=== PATIENT | male | born 1950 | race Caucasian/White ===

== ENCOUNTER 2018-10-03 07:30 | Inpatient (IN) ==
[2018-09-27 13:11] LABS: Basophils # (Auto) 0 K/mcL (0.0-0.3); Basophils % (Auto) 0.5 % (0.0-2.0); Eosinophils # (Auto) 0.3 K/mcL (0.0-0.7); Eosinophils % (Auto) 5.3 % (0.0-7.0); Granulocytes % (Auto) 61.6 % (38.0-78.0); Lymphocytes # (Auto) 1.7 K/mcL (1.5-4.8); Lymphocytes % (Auto) 26.2 % (15.5-49.0); Mean Cell Volume 96.7 fL (80.0-100.0); Mean Corpuscular HGB Conc 32.9 g/dL (31.0-36.0); Monocytes # (Auto) 0.4 K/mcL (0.1-0.9); Monocytes % (Auto) 6.4 % (1.0-12.0); Platelet Count 192 K/mcL (140-440); RBC 4.56 M/mcL (4.50-5.90)
[2018-09-27 13:57] LABS: Blood Urea Nitrogen 12 mg/dl (8-23)
[2018-09-27 15:09] LABS: Appearance,Urine HAZY; Bilirubin,Urine NEG (NEG); Color,Urine YELLOW; Glucose,Urine (UA) NEGATIVE (NEG); Leukocyte Esterase,Urine NEG /uL (NEG); Protein,Urine NEG (NEG); Specific Gravity,Urine 1.013 (1.000-1.035); Urine Blood NEG mg/dL (<0.03); Urobilinogen,Urine NEG (NEG)
[~2018-10-03 07:30] MED LIST: ACETAMINOPHEN 500 MG TABLET PO SCH; CELECOXIB 200 MG CAPSULE PO SCH; PREGABALIN 75 MG CAPSULE PO SCH; ceFAZolin 2 GM in DEXTROSE 5% IN WATER 50 ML IV SCH; oxyCODONE 10 MG TAB.ER.12H PO SCH
[2018-10-03] MEDS ORDERED: GENTAMICIN SULFATE 800 MG/20 ML VIAL IR ONE (08:04)
[2018-10-03] MEDS ORDERED: fentaNYL 250 MCG/5 ML VIAL IV ONE (10:55)
[2018-10-03] MEDS ORDERED: LIDOCAINE HCL/PF 100 MG/5 ML SYRINGE IV ONE (10:55)
[2018-10-03] MEDS ORDERED: SUCCINYLCHOLINE 20 MG/ML ML IV ONE (10:55)
[2018-10-03] MEDS ORDERED: ROPIVACAINE HCL/PF 30 ML VIAL IJ ONE (10:55)
[2018-10-03] MEDS ORDERED: MIDAZOLAM 5 MG/5 ML VIAL IV ONE (10:55)
[2018-10-03] MEDS ORDERED: TRANEXAMIC ACID 1,000 MG/10 ML VIAL IV ONE (10:55)
[2018-10-03] MEDS ORDERED: PROPOFOL 200 MG/20 ML VIAL IV ONE (10:55)
[2018-10-03] MEDS ORDERED: HYDROmorphone 2 MG/ML VIAL IV ONE (10:55)
[2018-10-03] MEDS ORDERED: ONDANSETRON 4 MG/2 ML VIAL IV ONE (10:55)
[2018-10-03] MEDS ORDERED: GLYCOPYRROLATE 0.2 MG/ML VIAL IV ONE (10:55)
[2018-10-03] MEDS ORDERED: NALOXONE HCL 0.4 MG/ML VIAL IV PRN (12:17)
[2018-10-03] MEDS ORDERED: HYDROmorphone 2 MG/ML VIAL IV PRN (12:17)
[2018-10-03] MEDS ORDERED: MEPERIDINE 25 MG/ML SYRINGE IV PRN (12:17)
[2018-10-03] MEDS ORDERED: BENZOCAINE/MENTHOL 1 LOZENGE PO PRN ×2 (12:17→12:26)
[2018-10-03] MEDS ORDERED: PROMETHAZINE 25 MG/ML VIAL IV PRN (12:17)
[2018-10-03] MEDS ORDERED: LACTATED RINGERS 250 ML IV PRN (12:17)
[2018-10-03] MEDS ORDERED: diphenhydrAMINE 50 MG/ML VIAL IV PRN (12:17)
[2018-10-03] MEDS ORDERED: FLUMAZENIL 0.1 MG/ML ML IV PRN (12:17)
[2018-10-03] MEDS ORDERED: METHOCARBAMOL 1,000 MG/10 ML VIAL IV PRN (12:17)
[2018-10-03] MEDS ORDERED: ONDANSETRON 4 MG/2 ML VIAL IV PRN ×2 (12:17→12:26)
[2018-10-03] MEDS ORDERED: IPRATROPIUM/ALBUTEROL 3 ML AMPUL.NEB NEB PRN (12:17)
[2018-10-03] MEDS ORDERED: KETOROLAC 15 MG/ML VIAL IV PRN ×2 (12:17→12:26)
[2018-10-03] MEDS ORDERED: BUPIVACAINE W/EPI 0.5% 50 ML VIAL IJ ONE (12:25)
[2018-10-03] MEDS ORDERED: TRANEXAMIC ACID 1,000 MG/10 ML VIAL IV SCH (12:26)
[2018-10-03] MEDS ORDERED: POLYETHYLENE GLYCOL 3350 17 GM PACKET PO PRN (12:26)
[2018-10-03] MEDS ORDERED: MAGNESIUM HYDROXIDE 30 ML ORAL.SUSP PO PRN (12:26)
[2018-10-03] MEDS ORDERED: FLEETS ADULT ENEMA PR PRN (12:26)
[2018-10-03] MEDS ORDERED: ACETAMINOPHEN 325 MG TABLET PO PRN (12:26)
[2018-10-03] MEDS ORDERED: BISACODYL 10 MG SUPP.RECT PR PRN (12:26)
--- NOTE | 2018-10-03 12:26 | Brief Operative Note ---
Date of procedure: 10/03/18 Pre-op diagnosis: left shoulder rca and bicep tear Post-op diagnosis: same Procedure: left reverse tsa and bicep tenodesis Grafts/Implants: Yes Anesthesia: LIDIA Surgeon: Mahamed Krueger Autopsy Pathologist: Wojciech Kelley Estimated blood loss (cc): 100 Specimens Removed/Pathology: none sent Condition: stable Disposition: PACU
[2018-10-03] MEDS ORDERED: ZOLPIDEM 10 MG PO PRN (12:28)
[2018-10-03] MEDS ORDERED: NITROGLYCERIN 0.4 MG TAB.SUBL SL PRN (12:28)
[2018-10-03] MEDS ORDERED: LACTATED RINGERS 1,000 ML IV SCH (12:30)
--- NOTE | 2018-10-03 13:04 | Operative Note ---
DATE OF OPERATION: 10/03/2018 PREOPERATIVE DIAGNOSES: Left shoulder rotator cuff arthropathy with biceps tendinopathy. POSTOPERATIVE DIAGNOSES: Left shoulder rotator cuff arthropathy with biceps tendinopathy. PROCEDURE: Left reverse total shoulder and biceps tenodesis. SURGEON: Mahamed Krueger M.D. MANUFACTURED BUILDINGS SUPERVISOR: Wojciech Kelley PA-C. ANESTHESIA: General LMA anesthesia. COMPLICATIONS: None. ESTIMATED BLOOD LOSS: About 100 mL. IMPLANTS: Metaglene standard, a 32 mm central screw with two 36 and 24 locking screws. A 40 mm head with 6 mm of offset was used. On the humeral side, I did use a size 13 stem with a standard thickness poly. The biceps tenodesis was performed with a #2 Ethibond. DESCRIPTION OF PROCEDURE: The patient was brought to the operating room and put to sleep with general LMA anesthesia. Once asleep, the patient had the left shoulder sterilely prepped and draped in the usual sterile fashion. Timeout was performed. We confirmed the operative side by initials, consent form, and x-rays. Once done, we then placed Ioban over the skin and made a deltopectoral approach to the shoulder. We identified the anterior capsule which was released with the subscap. We identified the biceps tendon which was partially ruptured which was released from the glenoid side. A biceps tenodesis was performed to the pec major with two [id number] sutures and roughened the bony surface. We then made our humeral cut at 135-degree inclination and 20 degrees of retroversion using their guide. Once this was done, we then placed a protective plate on the humeral side and subluxed this posteriorly. This was somewhat difficult given the size and the retroversion of the glenoid. We tried to reestablish some of the anteversion, and it was somewhat difficult to do. We placed a pin centrally and then reamed up to size 40. We implanted the Metaglene with a 36 mm central screw and three peripheral screws, 24 36, and 36. The 40 mm glenosphere was placed with 6 mm of offset because of the medialization. Once done, we then tapped the humeral head into place and then prepared the humeral side. We broached up to size 13 stem. We then trialed the 13 stem with a standard thickness poly. This was a little tight. We did countersink the stem slightly. We made the neck cut about 2 mm lower, and this fit very nicely. This was not overly tight but very stable throughout the arc of motion. We irrigated thoroughly and implanted the final implant. There was some cement used distally to secure the stem initially, and the 13 stem was placed with a standard thickness poly for a 40 mm head. This was reduced without difficulty. We then controlled any bleeding, which there was not very much of. We irrigated, closed the deltopectoral approach with 2-0 Vicryl, closed the skin with 2-0 Vicryl and adhesive closure. A DonJoy sling was fitted and given to the patient. RBH:jose Job ID: [id number] Doc ID: [id number] Mahamed Krueger MD
[2018-10-03] MEDS: fentaNYL 100 MCG/2 ML VIAL IV PRN ×3 (13:22→13:26)
--- NOTE | 2018-10-03 13:30 | XRay Report ---
CLINICAL INFORMATION: Post-Op Total Shoulder COMPARISON: Preoperative films 08/28/2008. FINDINGS: Total shoulder prostheses is anatomically aligned. 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 Soft tissue swelling gas seen as expected IMPRESSION: Negative Interpreted and Authenticated by: Gareth Oliver 10/03/18
[2018-10-03] MEDS: 0.9 % SODIUM CHLORIDE 10 ML SYRINGE IV SCH ×2 (13:44→21:56)
[2018-10-03] MEDS: HYDROmorphone 2 MG/ML VIAL IV PRN ×2 (13:52→14:42)
[2018-10-03] MEDS: 0.45 % SODIUM CHLORIDE 1,000 ML IV SCH ×2 (13:53→22:35)
[2018-10-03] MEDS ORDERED: NAPROXEN 250 MG TABLET PO PRN (17:30)
[2018-10-03] MEDS: oxyCODONE/APAP 5/325MG TABLET PO PRN ×2 (17:40→21:55)
[2018-10-03] MEDS: ceFAZolin 1 GM VIAL IV SCH (18:03)
[2018-10-03] MEDS: DOCUSATE SODIUM 100 MG CAPSULE PO SCH (20:27)
[2018-10-03] MEDS: LOSARTAN 50 MG TABLET PO SCH (20:28)
[2018-10-03] MEDS ORDERED: TEMAZEPAM 15 MG CAPSULE PO PRN (21:00)
[2018-10-03] MEDS ORDERED: SIMVASTATIN 20 MG TABLET PO SCH (21:00)
[2018-10-03] MEDS ORDERED: SENNOSIDES 1 TABLET PO SCH (21:00)
[2018-10-03] MEDS ORDERED: PARoxetine 20 MG TABLET PO SCH (21:00)
[2018-10-04] MEDS: ceFAZolin 1 GM VIAL IV SCH (02:17)
[2018-10-04] MEDS: oxyCODONE/APAP 5/325MG TABLET PO PRN ×3 (02:27→11:35)
[2018-10-04] MEDS: 0.9 % SODIUM CHLORIDE 10 ML SYRINGE IV SCH (07:05)
[2018-10-04] MEDS ORDERED: OMEPRAZOLE 20 MG CAPSULE PO SCH (07:30)
[2018-10-04] MEDS: LOSARTAN 50 MG TABLET PO SCH (08:05)
[2018-10-04] MEDS: DOCUSATE SODIUM 100 MG CAPSULE PO SCH (08:05)
[2018-10-04] MEDS ORDERED: ASPIRIN 325 MG ENTERIC COATED TABLET PO SCH (09:00)
[2018-10-04] MEDS ORDERED: VITAMIN D3 1,000 UNIT TABLET PO SCH (09:00)
--- NOTE | 2018-10-04 13:13 | Discharge Summary ---
Ortho Discharge - TSA - Patient Instructions Diet: Regular Diet Activity: activity as tolerated, weight bearing as tolerated Total Shoulder Protocol: Leave immobilizer in place except for bathing and ROM. Abduction pillow. Continue to wear sling until seen by physician. Codman Pendulum : These exercises use momentum produced by your body to move your shoulder joint. Bend your knees and shift your weight to your front leg, then back, allowing your arm to swing in the same directions. Using the same technique, alternately shift your weight between your right and left legs, allowing your arm to swing from side to side. These exercises are also performed in counterclockwise and clockwise circular motions. Typically these exercises are performed several times per day, for a set number repetitions or minutes, such as 20 times in a row or 5 minutes at a time. Dressing Care: May shower in 2 days - Follow Up Plan Follow Up Appointments: Wojciech Kelley PA-C [Physician [facility] Watch[facility]] - 10/18/18 11:20 am Disposition: Home, Self-Care Prognosis: Good Rehab Potential: Good I certify that the patient requires SNF services: No Overall status at discharge: patient is progressing back to baseline - Orders For Discharge Prescriptions: oxyCODONE/APAP [Percocet 5-325 mg] 5 - 10 mg PO Q4HP PRN #60 tab PRN Reason: Pain Level 3-6
== END 2018-10-04 13:32 | disposition home or self-care (01) | DRG 483 ==
LOC: EDSEX 07:30 → MEDSUR 08:02
PROVIDERS: ADMIT Orthopaedic Surgery; ATTEND Orthopaedic Surgery